=== PATIENT | male | born 1990 | race Two or more races ===

== ENCOUNTER 2018-05-19 08:22 | Emergency (ER) | payer OTHER ==
--- NOTE | 2018-05-19 08:29 | PDOC ---
History of Present Illness - General Chief Complaint: Injury Stated Complaint: INJURY TO RIGH SMALL FINGER AT WORK Time Seen by Provider: 05/19/18 08:27 History Source: Patient Exam Limitations: No Limitations - History of Present Illness Initial Comments: 05/19/18 08:33 28y M no pmhx presents with finger injury. This morning the pt was loading a land scaping machine onto the truck trying to manipulate it into position and it crushed his R hand. Pt endorses pain to the ulnar aspect of his R hand and bleeding of his pinky finger. Pt denies any other injuries. pt ntoes some parasthesias on his R pinky denies any numbness Right hand dominant social - pt is a day equipment operator/laborer in [employer] no hx of tetanus Past History - Past Medical History Allergies/Adverse Reactions: Allergies Allergy/AdvReac Type Severity Reaction Status Date / Time No Known Allergies Allergy Verified 05/19/18 08:24 Home Medications: Ambulatory Orders NK [No Known Home Medication] 05/19/18 Review of Systems - Review of Systems Able to Perform ROS?: Yes Comments:: 05/19/18 09:07 MSK: +R pinky pain and laceration, +parasthesias to R pinky HEME: no history of frquent bleeding/bruising *Physical Exam - Physical Exam Comments: 05/19/18 09:15 HAND: Normal ROM of R wrist, hand, finger (MCP, PIP, DIP), no TTP to wrist, hand , proximal R pinky finger. partial/almost complete amputation of distal R pinky tip, bluish hue on distal tip, partial degloving injury to the ulnar aspect of pinky, decreased sensatio to tip of finger. no active beleding GENERAL: No acute distress Procedures - Consent Consent obtained: Verbal - Laceration/Wound Repair Right Distal 5th digit Wound Explored: no foreign body present Wound's Depth, Shape: irregular, flap, contused tissue Irrigated w/ Saline: Yes Anesthesia: 1% Lidocaine (digtal block) Amount of Anesthetic (ccs): 6 Wound Debrided: minimal ED Treatment Course - LABORATORY CBC & Chemistry Diagram: 05/19/18 08:57 05/19/18 08:57 Medical Decision Making - Medical Decision Making 05/19/18 09:16 partial amputation of R distal phylanges of 5th digit 05/19/18 09:36 xray reveals fracture of tip of Distal phalanges area was throughly irrigated with normal saline pt given 2g of ancef and tetnaus booster awaiting call back from orthopedics dx: partial amputation of R 5th digit 05/19/18 10:[address] Gatica (construction contractor for ortho) states pt will need revision amputation requests transfer to [facility] 05/19/18 11:[address] Ruiz accepted for transfer for further management to [facility] for higher level of care The patient was seen and examined to determine medical stability. The patient is MEDICALLY STABLE at this time. Labs, EKG, radiological studies were ordered to expedite the patient's care. I certify that I have discussed with the patient and/or his account service representative the following risks and benefits of the proposed transfer. Risks include worsening of patients condition during transport,auto accident, or permanent disability. Benefits include receiving specialized care not available at this facility. I certify that, based on the information available at this time, the medical benefits reasonably expected from the provision of appropriate medical treatment at the receiving facility outweigh the increased risk to the patient. I believe the patient/relative/guardian understands what I have explained and answered. The patient will be transferred to the service of Dr. Ruiz at [facility] *DC/Admit/Observation/Transfer Diagnosis at time of Disposition: Partial traumatic transphalangeal amputation of right little finger Qualifiers: Encounter type: initial encounter Qualified Code(s): S68.626A - Partial traumatic transphalangeal amputation of right little finger, initial encounter - Discharge Dispostion Disposition: TRANSFER ACUTE CARE/OTHER HOSP Condition at time of disposition: Stable Decision to Admit order: No - Referrals - Patient Instructions - Post Discharge Activity - Transfer to Acute Care Facility Receiving Facility: [facility]. Accepting Physician:: Dr Ruiz
[2018-05-19 08:31] VITALS: BMI 28.1
[2018-05-19] MEDS ORDERED: DIPHTH,PERTUSS(ACELL),TET 0.5 ML DISP.SYRIN IM ONE ×2 (08:32→08:48)
[2018-05-19] MEDS ORDERED: CEFAZOLIN 2 GM in DEXTROSE 5%-WATER - 50 ML IVPB ONE (08:32)
[2018-05-19] MEDS ORDERED: morphine CARPU-JECT 2 MG/1 ML DISP.SYRIN IVPUSH ONE ×2 (08:43→09:02)
[2018-05-19] MEDS ORDERED: LIDOCAINE HCL 1%, 10 MG/ML (20ML VIAL) ONE (08:44)
[2018-05-19] MEDS ORDERED: morphine SULFATE 4 MG/ML VIAL ONE (08:47)
[2018-05-19] MEDS ORDERED: ceFAZolin SODIUM 1 GM VIAL ONE ×2 (08:47→09:03)
[2018-05-19 09:21] LABS: BASO % 0.5 % (0-2.0); EOS % 5.7 % (0-4.5); HEMATOCRIT 51.5 % (35.4-49); HEMOGLOBIN 17.2 GM/dl (11.7-16.9); LYMPH % 24.6 % (8-40); MCH 30.4 pg (25.7-33.7); MCHC 33.5 g/dl (32.0-35.9); MEAN CELL VOLUME 90.8 fl (80-96); MEAN PLT VOLUME 8.7 fl (7.5-11.1); MONO % 8.9 % (3.8-10.2); NEUT % 60.3 % (42.8-82.8); PLATELET COUNT 267 K/MM3 (134-434); RBC 5.66 M/mm3 (4.00-5.60); RDW 12.6 % (11.9-15.9); WHITE BLOOD COUNT 4.5 K/mm3 (4.0-10.8)
[2018-05-19 09:42] LABS: ALBUMIN 4.1 g/dl (3.5-5.0); ALK PHOS 74 U/L (32-92); ANION GAP 8 MMOL/L (8-16); BILIRUBIN,TOTAL 0.6 mg/dl (0.2-1.0); BLOOD UREA NITROGEN 10 mg/dl (7-18); CALCIUM 8.6 mg/dl (8.4-10.2); CHLORIDE 107 mmol/L (98-107); CO2 24 mmol/L (22-28); CREATININE 0.9 mg/dl (0.6-1.3); GLUCOSE,RANDOM 120 mg/dl (74-106); POTASSIUM 3.9 mmol/L (3.5-5.1); SGOT/AST 21 U/L (10-42); SGPT/ALT 23 U/L (10-40); SODIUM 139 mmol/L (136-145); TOT PROT 7.6 g/dl (6.4-8.3)
[2018-05-19 09:48] LABS: INR 0.99 (0.82-1.09); PROTHROMBIN TIME (PATIENT) 11.1 SEC (10.2-13.0)
[2018-05-19 11:15] VITALS: BP 114/69; TEMP 98.1
[2018-05-19 11:16] VITALS: PULSE 67
== END 2018-05-19 12:11 | disposition short-term general hospital (02) ==
LOC: FER 08:22
PROC: 0HQFXZZ Repair Right Hand Skin, External Approach (ICD-10-PCS; principal; 2018-05-19)
PROC: 3E0234Z Introduction of Serum, Toxoid and Vaccine into Muscle, Percutaneous Approach (ICD-10-PCS; 2018-05-19)
DX: S68.626A Partial traumatic transphalangeal amputation of right little finger, initial encounter (principal); W23.0XXD Caught, crushed, jammed, or pinched between moving objects, subsequent encounter; Y93.9 Activity, unspecified; Y92.9 Unspecified place or not applicable; Y99.0 Civilian activity done for income or pay
CPT/HCPCS: 36415; 73140-TC-RT-FY; 80053; 85025; 85610; 86850; 86900; 86901; 90715; 99284-25